=== PATIENT | male | born 1965 | race Caucasian/White ===

== ENCOUNTER 2016-09-26 09:09 | Day surgery (SDC) | payer OTHER ==
[2016-07-31 10:01] VITALS: BMI 33.5
[~2016-09-26] VITALS: Ht 186.7 cm; Wt 117.4 kg
[~2016-09-26 09:09] MED LIST: AMLO5TAB4 PO; ASPI-664 PO; ATOR20TA38 PO; CALC625T68 PO; FER325 PO; FINA5TAB PO; FLORANEX PO; HYDR10TA36 PO; LACT20SO2 PO; METF-382 PO; MYL80 PO; NICO-524 TRANSDERM; PERCOCET PO; POLY17PO6 PO; SAN30GM TOP; SENN-36 PO; SEVE800T10 PO; SITA100T8 PO; TAMS-14 PO; ZINC220C5 PO
[2016-09-26] MEDS ORDERED: IODIXANOL LOCM 100 ML BTL ONE (09:43)
[2016-09-26] MEDS ORDERED: SOD CHLORIDE 0.9% 0 ML ONE (09:43)
[2016-09-26] MEDS ORDERED: HEPARIN 1000 UNITS/ML 10 ML INJ ONE (09:43)
[2016-09-26] MEDS ORDERED: MIDAZOLAM 1 MG/ML 2 ML INJ ONE (09:43)
[2016-09-26] MEDS ORDERED: IODIXANOL LOCM 50 ML BTL ONE (09:43)
[2016-09-26] MEDS ORDERED: FENTAnyl 50 MCG/ML VIAL ONE (09:43)
[2016-09-26] MEDS ORDERED: AMLO5TAB4 PO (09:48)
[2016-09-26] MEDS ORDERED: ATOR20TA38 PO (09:50)
[2016-09-26] MEDS ORDERED: ASPI81TA3 PO (09:50)
[2016-09-26] MEDS ORDERED: FURO20TA3 PO (09:51)
[2016-09-26] MEDS ORDERED: FURO40TA4 PO (09:51)
[2016-09-26] MEDS ORDERED: LOSA100T7 PO (09:52)
[2016-09-26] MEDS ORDERED: METF500T3 PO (09:52)
[2016-09-26 10:05] LABS: ADD SCAN DIFF NO
[2016-09-26 10:06] VITALS: Ht 186.7 cm; Wt 117.4 kg
[2016-09-26 10:07] VITALS: BP 158/72; PULSE 82; RESP 18
[2016-09-26 10:11] LABS: BASOPHIL # 0.1 10^3/ul (0.0-0.1); BASOPHILS % 0.5 % (0.0-2.0); EOSINOPHILS # 0.8 10^3/ul (0.0-0.5); EOSINOPHILS % 8.2 % (0.0-7.0); HEMATOCRIT 42.3 % (42.0-52.0); LYMPHOCYTES # 2.7 10^3/ul (0.8-2.9); LYMPHOCYTES % 27.8 % (15.0-51.0); MEAN CORPUSCULAR HEMOGLOBIN 27.8 pg (29.0-33.0); MEAN CORPUSCULAR HGB CONC 33.1 g/dl (32.0-37.0); MEAN CORPUSCULAR VOLUME 84.1 fl (82.0-101.0); MEAN PLATELET VOLUME 11.3 fl (7.4-10.4); MONOCYTE # 0.9 10^3/ul (0.3-0.9); NEUTROPHIL # 5.3 10^3/ul (1.6-7.5); NEUTROPHILS % 54.1 % (39.0-77.0); PLATELET COUNT 162 10^3/UL (140-415); RED BLOOD COUNT 5.03 10^6/ul (4.70-6.10); WHITE BLOOD COUNT 9.8 10^3/ul (4.8-10.8)
[2016-09-26 10:20] LABS: CREATININE 1.27 mg/dl (0.61-1.24); POTASSIUM 4.2 mmol/L (3.5-5.1)
[2016-09-26 10:22] LABS: CALCIUM 8.7 mg/dl (8.4-10.2)
[2016-09-26 10:27] LABS: INR 0.91; PROTIME 12.2 Sec (12.2-14.2)
--- NOTE | 2016-09-26 11:24 | RADRPT ---
PROCEDURE: XR Chest. CLINICAL INDICATION: Shortness of breath. TECHNIQUE: Single frontal view. COMPARISON: 08/26/2015. FINDINGS: The left arm PICC line has been removed. The lungs are clear. The heart size is normal. There is no pleural effusion. There is no pneumothorax. IMPRESSION: 1. Left arm PICC line removed. 2. Otherwise normal chest radiograph. RPTAT: QQ .Juan Jose Giraldo MD, MD Date Time Electronically viewed and signed by .Juan Jose Giraldo MD, on 09/26/2016 11:24 .R/
--- NOTE | 2016-09-27 10:34 | RADRPT ---
Vent Rate: 73 bpm RR Interval: 0 msec SC Interval: 196 msec QRS Duration: 106 msec QT Interval: 398 msec QTC Interval: 438 msec P-R-T Kermit: 62 - 15 - 75 degrees Normal sinus rhythm Normal ECG Electronically Signed By: Robert Hassan [id number]
== END 2016-09-26 12:15 | disposition home or self-care (01) ==
LOC: SDS 09:09
PROVIDERS: ATTEND Student in an Organized Health Care Education/Training Program
DX: L97.919 Non-pressure chronic ulcer of unspecified part of right lower leg with unspecified severity (principal)
CPT/HCPCS: 71010; 80048; 82962; 85025; 85610; 85730; 93005; Q9967; J1644; J2250; J3010; J7040

== ENCOUNTER 2018-12-17 09:17 | Day surgery (SDC) | payer MEDICARE, OTHER ==
[2018-12-16 18:21] VITALS: Ht 185.4 cm; Wt 113.3 kg
[~2018-12-17] VITALS: Ht 185.4 cm; Wt 113.3 kg
[2018-12-17] VITALS (8 sets, daily range): BP systolic 129–155; BP diastolic 56–72; PULSE 78–90; RESP 13–20
[~2018-12-17 09:17] MED LIST changes: -ASPI-664 PO; +ASPI-903 PO; -CALC625T68 PO; -FER325 PO; -FINA5TAB PO; -FLORANEX PO; +FURO40TA4 PO; -HYDR10TA36 PO; -LACT20SO2 PO; +LOSA100T15 PO; -METF-382 PO; +METF500T3 PO; -MYL80 PO; -NICO-524 TRANSDERM; -PERCOCET PO; -POLY17PO6 PO; -SAN30GM TOP; -SENN-36 PO; -SEVE800T10 PO; -SITA100T8 PO; -TAMS-14 PO; -ZINC220C5 PO
[2018-12-17] MEDS ORDERED: TRAM50TA PO (10:27)
[2018-12-17] MEDS ORDERED: SITA50TA2 PO (10:27)
[2018-12-17] MEDS ORDERED: ALLO100T PO (10:27)
[2018-12-17] MEDS ORDERED: UMEC1DIS INHALATION (10:27)
[2018-12-17] MEDS ORDERED: CHOL100062 PO (10:27)
[2018-12-17] MEDS ORDERED: SPIR25TA PO (10:27)
--- NOTE | 2018-12-17 10:34 | PREAC ---
Date/Time of Note Date/Time of Note DATE: 12/17/18 TIME: 10:31 Anesthesia Eval and Record Evaluation Time Pre-Procedure Interview DATE: 12/17/18 TIME: 10:31 Age 53 Sex male NPO: 8 hrs Preoperative diagnosis left foot osteomyelitis, diabetic foot ulcer Planned procedure left foot debridement of ulcer, removal of osteomyelitic bone Past Medical History Past Medical History: Includes Cardio: HTN, Dyslipidemia Endo: Diabetes (glucose 204 in preop) Pulm: Smoking Hx (1ppd, smoked today), Asthma Musculoskeletal: Other (chronic pain-feet, neuropathy) Surgery & Anesthesia Issues No known issue Meds Anticoagulation: No Beta Binu within 24 hr: No Reason Beta Binu not given: Pt. not on B-Binu Reported Medications Cholecalciferol* (Vitamin D3*) 1,000 Unit Tablet, 5000 UNIT PO DAILY, TAB 12/17/18 Sitagliptin* (Januvia*) 50 Mg Tablet, 50 MG PO DAILY, #30 TAB 12/17/18 Umeclidinium Brm-Vilanterol Tr (Anoro Ellipta) 62.5-25 Mcg Disk.w.dev, 1 PUFF INHALATION DAILY, #1 DISK 12/17/18 Tramadol Hcl* (Ultram*) 50 Mg Tablet, 50 MG PO Q6H PRN for PAIN, TAB 12/17/18 Spironolactone* (Aldactone*) 25 Mg Tablet, 25 MG PO DAILY, #30 TAB 12/17/18 Allopurinol* (Allopurinol*) 100 Mg Tablet, 200 MG PO DAILY, TAB 12/17/18 Losartan Potassium* (Losartan Potassium*) 100 Mg Tablet, 100 MG PO DAILY, TAB 09/26/16 Atorvastatin Calcium* (Atorvastatin Calcium*) 20 Mg Tablet, 20 MG PO QHS, #30 TAB 09/26/16 Aspirin* (Aspirin* Chew) 81 Mg Tab.chew, 81 MG PO DAILY, TAB.CHEW 09/26/16 Discontinued Reported Medications Metformin Hcl* (Metformin Hcl* ER) 500 Mg Tab.sr.24h, 500 MG PO DAILY, #30 TAB 09/26/16 Furosemide* (Furosemide*) 40 Mg Tablet, 40 MG PO BID, TAB 09/26/16 Amlodipine Besylate* (Norvasc*) 5 Mg Tablet, 5 MG PO DAILY, TAB 09/26/16 Meds reviewed: Yes Allergies Coded Allergies: Penicillins (Unverified Allergy, Severe, HIVES, 12/17/18) Allergies Reviewed: Yes Labs/Studies Labs Reviewed: Reviewed by anesthesiologist test: N/A Studies: ECG, CXR Pre-procedure Exam Airway: Adequate mouth opening, Adequate thyromental dist Mallampati: Mallampati II Teeth: Normal (some missing teeth but no loose ) Lung: Normal Heart: Normal ASA Physical Status ASA physical status: 3 Emergency: None Planned Anesthetic General/MAC: MAC Planned Pain Management Parenteral pain med, Local by surgeon Pre-operative Attestations Prior to commencing anesthesia and surgery, the patient was re-evaluated, there was verification of: *The patient's identity *The results of appropriate recent lab work and preoperative vital signs *The above evaluation not changing prior to induction *Anesthetic plan, risk benefits, alternative and complications discussed with patient/family; questions answered; patient/family understands, accepts and wishes to proceed. VIV TALBOT Dec 17, 2018 10:34
[2018-12-17] MEDS ORDERED: ONDANSETRON 4 MG INJ IV PRN (11:00)
[2018-12-17] MEDS ORDERED: HYDROmorphONE 1 MG/5 ML IV SYRINGE IV PRN ×3 (11:00)
[2018-12-17] MEDS ORDERED: OXYCODONE/ACETAMINOPHEN (5/325) TAB PO PRN ×2 (11:00)
[2018-12-17] MEDS ORDERED: ALBUTEROL 0.083% (NEB) 2.5 MG/3 ML AMP HHN PRN (11:00)
[2018-12-17] MEDS ORDERED: SOD CHLORIDE 0.9% 1,000 ML IV SCH (11:00)
[2018-12-17] MEDS ORDERED: MIDAZOLAM 1 MG/ML 2 ML INJ ONE (11:16)
[2018-12-17] MEDS ORDERED: PROPOFOL 20 ML ONE (11:16)
[2018-12-17] MEDS ORDERED: FENTAnyl 50 MCG/ML VIAL ONE (11:16)
[2018-12-17] MEDS ORDERED: LIDOCAINE 2% (SDV) 5 ML INJ ONE (11:16)
[2018-12-17] MEDS ORDERED: CLINDAMYCIN 900 MG/D5W (PMX) 50 ML IVPB ONE (11:16)
[2018-12-17] MEDS ORDERED: GLYCOPYRROLATE 0.4 MG INJ ONE (11:18)
--- NOTE | 2018-12-17 11:18 | HPN ---
Date/Time of Note Date/Time of Note DATE: 12/17/18 TIME: 11:18 Interval H&P Admission Note Pt. seen H&P reviewed: No system changes AMRITA BOUCHER DPM Dec 17, 2018 11:18
[2018-12-17] MEDS ORDERED: BUPIVACAINE 0.5% (SDV) 30 ML INJ ONE (11:26)
[2018-12-17] MEDS ORDERED: ONDANSETRON 4 MG INJ ONE (12:11)
[2018-12-17] MEDS ORDERED: METOCLOPRAMIDE 10 MG INJ ONE (12:11)
[2018-12-17] MEDS ORDERED: FAMOTIDINE 20 MG INJ ONE (12:12)
--- NOTE | 2018-12-17 13:09 | SIPON ---
Date/Time of Note Date/Time of Note DATE: 12/17/18 TIME: 13:07 Operative Report Preoperative Diagnosis Left foot. osteomyekitis of the 4th met. Postoperative Diagnosis Same Operation/Procedure Performed Debridement of the ulceration. Removal of osteomyelitic bone 4th Met. Surgeon see signature line actuarial assistant None. Anesthesia: general Estimated blood loss: minimal Transfusion Required none Specimen Bone Biopsy. Grafts/Implants none Complications none AMRITA BOUCHER DPM Dec 17, 2018 13:09
--- NOTE | 2018-12-17 13:25 | PAC ---
Date/Time of Note Date/Time of Note DATE: 12/17/18 TIME: 13:25 Post-Anesthesia Notes Post-Anesthesia Note Last documented vital signs Vital Signs Date Temp Pulse Resp B/P (MAP) Pulse Ox O2 O2 Flow FiO2 Time Delivery Rate 12/17/18 97.4 13:22 12/17/18 88 17 148/69 99 Mask 8.0 13:16 (95) Activity: WNL Respiratory function: WNL Cardiovascular function: WNL Mental status: Baseline Pain reasonably controlled: Yes Hydration appropriate: Yes Nausea/Vomiting absent: Yes VIV TALBOT Dec 17, 2018 13:25
[2018-12-17] MEDS ORDERED: ONDANSETRON (ODT) 4 MG TAB ODT PRN (13:30)
[2018-12-17] MEDS ORDERED: HYDROCODONE/APAP (10/325) TAB PO PRN (13:30)
--- NOTE | 2018-12-17 13:37 | OPR ---
DATE OF OPERATION: 12/17/2018 PREOPERATIVE DIAGNOSIS: Osteomyelitis of the 4th metatarsal of the left foot. POSTOPERATIVE DIAGNOSIS: Osteomyelitis of the 4th metatarsal of the left foot. OPERATION: Left foot debridement of ulceration and removal of osteomyelitic bone of the 4th metatarsal. ANESTHESIA: General. OPERATION IN DETAILS: The patient was brought in the OR and approximately 10 mL of 0.5% plain Marcaine was administered circumferentially around the 4th metatarsophalangeal joint region of the left foot. After anesthesia was achieved, tourniquet was applied around the ankle. Foot and ankle were prepped and draped in the usual sterile fashion. The foot and ankle was then exsanguinated with an Esmarch bandage and the tourniquet was inflated to approximately 250 mmHg. Attention was then directed to the plantar aspect where a debridement was done with #10 blade down to the head of the 4th metatarsal. Then, attention was then directed back dorsally where a 4 cm incision was performed over the 4th metatarsophalangeal joint region. Sharp and blunt dissection was achieved. Any bleeding vessels were ligated and nervous tissue was retracted. There was a large amount of drainage noted that was serosanguineous. This was cultured for both aerobic and anaerobic down to the head of the 4th metatarsal. Utilizing scissors and a #15 blade, the 4th metatarsal head was circumscribed and the osteomyelitis was identified at the head of the 4th metatarsal up to the metaphyseal region. Utilizing a sagittal saw, approximately 0.5 cm proximal to the visible clinical osteomyelitic changes, the head of the 4th metatarsal was osteotomized and removed in toto. Inspection was done of the remaining stalk of the metatarsal and it clinically appeared to show no osteomyelitic changes in the bone. The area was then copiously lavaged with antibiotic solution. A bone biopsy was taken and sent to pathology. The surgical site was then coapted with 3-0 nylon and 2-0 Vicryl suture and the dorsal incision with a 3-0 nylon. Approximately 1 cm area was left open so that it is not primarily completely closed. Nu Gauze was utilized to pack the wound dorsally and to create a wicking effect postoperatively dorsally. The plantar ulcer was circumscribed and the bleeding areas were ligated and then the ulceration site plantarly was sutured closed. Postoperatively, approximately 10 mL of 0.5% plain Marcaine was then utilized. A dressing of Adaptic, 4 x 4's and roll gauze was then utilized over the foot. The tourniquet was released and normoactive hyperemia was then noted in all the digits of the left foot. This patient tolerated the procedure well and left the OR in stable condition. There were no intraoperative complications. There was minimal blood loss noted. Dictated By: AMRITA MAJOR/JOSS Conf#: [id number] DID#: [id number] MTDD
== END 2018-12-17 15:17 | disposition home or self-care (01) ==
LOC: SDS 09:17
PROVIDERS: ATTEND Podiatrist Foot & Ankle Surgery
DX: M86.672 Other chronic osteomyelitis, left ankle and foot (principal); E11.621 Type 2 diabetes mellitus with foot ulcer; E78.5 Hyperlipidemia, unspecified; I12.9 Hypertensive chronic kidney disease with stage 1 through stage 4 chronic kidney disease, or unspecified chronic kidney disease; N18.2 Chronic kidney disease, stage 2 (mild); J45.909 Unspecified asthma, uncomplicated; Z79.82 Long term (current) use of aspirin
CPT/HCPCS: 11044; 73630; 82962; 87070; 87075; 87102; 87116; 88304; 88311; J2250; J2405; J2765; J3010

== ENCOUNTER 2018-12-29 14:09 | Inpatient (IN) | payer MEDICARE, OTHER ==
[~2018-12-29] VITALS: Ht 185.4 cm; Wt 115.4 kg
[~2018-12-29 14:09] MED LIST changes: +ALLO100T PO; -AMLO5TAB4 PO; +CHOL100062 PO; -FURO40TA4 PO; -METF500T3 PO; +SITA50TA2 PO; +SPIR25TA PO; +TRAM50TA PO; +UMEC1DIS INHALATION
--- NOTE | 2018-12-29 14:41 | ERD ---
ER Documentation Chief Complaint Chief Complaint left leg redness sent by nut former HPI The patient is a 53-year-old male, presenting to the ER because of left leg redness and swollen, sent to the ER by his nut former. He had left metatarsal surgery due to osteomyelitis about 10 days ago, he is taking antibiotic but he does not know the name, denies fever, chills, neck pain, chest pain, dyspnea, abdominal pain, vomiting, dysuria, diarrhea. He smokes, denies drinking Past medical history: Diabetes mellitus, hypertension, dyslipidemia, CAD, diabetic neuropathy Past surgical history: Cholecystectomy ROS All systems reviewed and are negative except as per history of present illness. Medications Home Meds Reported Medications Albuterol Sulfate* (Proair HFA*) 8.5 Gm Hfa.aer.ad, 2 PUFF INH Q4H PRN for WHEEZING AND SOB, #1 INHALER 12/29/18 Cyanocobalamin* (Vitamin B-12*) 1,000 Mcg Tablet.sa, 500 MCG PO DAILY, TAB 12/29/18 Furosemide* (Furosemide*) 40 Mg Tablet, 40 MG PO BID, TAB 12/29/18 Cholecalciferol* (Vitamin D3*) 1,000 Unit Tablet, 5000 UNIT PO DAILY, TAB 12/17/18 Sitagliptin* (Januvia*) 50 Mg Tablet, 50 MG PO DAILY, #30 TAB 12/17/18 Umeclidinium Brm-Vilanterol Tr (Anoro Ellipta) 62.5-25 Mcg Disk.w.dev, 1 PUFF INHALATION DAILY, #1 DISK 12/17/18 Tramadol Hcl* (Ultram*) 50 Mg Tablet, 50 MG PO Q6H PRN for PAIN, TAB 12/17/18 Spironolactone* (Aldactone*) 25 Mg Tablet, 25 MG PO DAILY, #30 TAB 12/17/18 Allopurinol* (Allopurinol*) 100 Mg Tablet, 200 MG PO DAILY, TAB 12/17/18 Losartan Potassium* (Losartan Potassium*) 100 Mg Tablet, 100 MG PO DAILY, TAB 09/26/16 Atorvastatin Calcium* (Atorvastatin Calcium*) 20 Mg Tablet, 20 MG PO QHS, #30 TAB 09/26/16 Aspirin* (Aspirin* Chew) 81 Mg Tab.chew, 81 MG PO DAILY, TAB.CHEW 09/26/16 Allergies Allergies: Coded Allergies: Penicillins (Unverified Allergy, Severe, HIVES, 12/29/18) PMhx/Soc History of Surgery: Yes (CHOLECYSTECTOMY, R FOOT I AND D, ANGIOPLASTY) Anesthesia Reaction: No Hx Neurological Disorder: No Hx Respiratory Disorders: No Hx Cardiac Disorders: Yes (HTN,CAD,FUNMI. LE ATHEROSCLEROTIC DIS.) Hx Psychiatric Problems: No Hx Miscellaneous Medical Probl: Yes Hx Alcohol Use: No Hx Substance Use: No Hx Tobacco Use: Yes Physical Exam Vitals Vital Signs Date Temp Pulse Resp B/P (MAP) Pulse Ox O2 O2 Flow FiO2 Time Delivery Rate 12/29/18 98.0 77 18 121/59 96 Room Air 16:10 (79) 12/29/18 98.0 76 18 129/61 96 Room Air 14:55 (83) 12/29/18 97.9 78 18 138/67 96 14:12 (90) Physical Exam Const: No acute distress Head: Atraumatic Eyes: Normal Conjunctiva ENT: Normal External Ears, Nose and Mouth. Neck: Full range of motion. No meningismus. Resp: Clear to auscultation bilaterally Cardio: Regular rate and rhythm, no murmurs Abd: Soft, non tender, non distended. Normal bowel sounds Skin: No petechiae or rashes Back: No midline or flank tenderness Ext: Left leg is warm to touch/mild edema, mild calf tenderness. Bilateral feet are dressed Neur: Awake and alert Psych: Normal Mood and Affect Result Diagram: 12/29/18 1534 12/29/18 1534 Results 24 hrs Laboratory Tests Test 12/29/18 15:23 12/29/18 15:34 POC Venous Lactate 1.1 mmol/L White Blood Count 9.9 10^3/ul Red Blood Count 5.61 10^6/ul Hemoglobin 15.1 g/dl Hematocrit 48.4 % Mean Corpuscular Volume 86.3 fl Mean Corpuscular Hemoglobin 26.9 pg Mean Corpuscular Hemoglobin Concent 31.2 g/dl Red Cell Distribution Width 16.9 % Platelet Count 180 10^3/UL Mean Platelet Volume 11.6 fl Immature Granulocytes % 1.100 % Neutrophils % 59.2 % Lymphocytes % 23.0 % Monocytes % 9.0 % Eosinophils % 6.9 % Basophils % 0.8 % Nucleated Red Blood Cells % 0.0 /100WBC Immature Granulocytes # 0.110 10^3/ul Neutrophils # 5.8 10^3/ul Lymphocytes # 2.3 10^3/ul Monocytes # 0.9 10^3/ul Eosinophils # 0.7 10^3/ul Basophils # 0.1 10^3/ul Nucleated Red Blood Cells # 0.0 10^3/ul Erythrocyte Sedimentation Rate 45 mm/Hr Prothrombin Time 11.9 Sec Prothrombin Time Ratio 0.9 INR International Normalized Ratio 0.87 Activated Partial Thromboplast Time 26.7 Sec Urine Color STRAW Urine Clarity CLEAR Urine pH 6.0 Urine Specific [place] 1.008 Urine Ketones NEGATIVE mg/dL Urine Nitrite NEGATIVE mg/dL Urine Bilirubin NEGATIVE mg/dL Urine Urobilinogen NEGATIVE mg/dL Urine Leukocyte Esterase NEGATIVE Abelino/ul Urine Hemoglobin NEGATIVE mg/dL Urine Glucose 3+ mg/dL Urine Total Protein NEGATIVE mg/dl Sodium Level 140 mmol/L Potassium Level 4.5 mmol/L Chloride Level 105 mmol/L Carbon Dioxide Level 29 mmol/L Anion Gap 6 Blood Urea Nitrogen 23 mg/dl Creatinine 1.92 mg/dl Est Glomerular Filtrat Rate mL/min 37 mL/min Glucose Level 202 mg/dl Calcium Level 10.0 mg/dl Total Bilirubin 0.5 mg/dl Direct Bilirubin 0.00 mg/dl Indirect Bilirubin 0.5 mg/dl Aspartate Amino Transf (AST/SGOT) 19 IU/L Alanine Aminotransferase (ALT/SGPT) 22 IU/L Alkaline Phosphatase 70 IU/L Troponin I < 0.012 ng/ml Total Protein 7.9 g/dl Albumin 4.0 g/dl Globulin 3.90 g/dl Albumin/Globulin Ratio 1.02 Current Medications Medications Dose Sig/Babak Start Time Status Last (Trade) Ordered Route PRN Stop Time Admin Dose Reason Admin Vancomycin 250 ml @ ONCE ONCE 12/29/18 HCl 125 mls/hr IVPB 16:30 12/29/18 18:29 50 ml @ ONCE STAT 12/29/18 DC 12/29/18 Meropenem/Sod 100 mls/hr IVPB 16:25 17:24 ium Chloride 12/29/18 16:54 Procedures/MDM [address] [address] Radiology Main Line: [phone] DIAGNOSTIC IMAGING REPORT Patient: DENNY AUGUSTE : 1965 Age: 53 Sex: M MR #: [id number] DOS: 12/29/18 1627 Ordering MD: MARY COON MD Location: E/R Room/Bed: PROCEDURE: US Lower extremity Venous. CLINICAL INDICATION: Left leg pain TECHNIQUE: Multiple sonographic images of the left lower extremity deep venous system was obtained utilizing grayscale, color-flow, compressive sonography and doppler imaging with augmentation. The images were reviewed on a PACS workstation. COMPARISON: None. FINDINGS: There is normal compressibility and flow within the left common femoral, deep femoral, superficial femoral, posterior tibial, peroneal and popliteal veins. IMPRESSION: No sonographic evidence for deep venous thrombosis. RPTAT: AA .Hiral Rosen MD, MD Date Time Electronically viewed and signed by .Hiral Rosen MD, MD on 12/29/2018 17:18 .J/ CC: MARY COON MD [id number] [place] [id number] Radiology Main Line: [phone] DIAGNOSTIC IMAGING REPORT Patient: DENNY AUGUSTE : 1965 Age: 53 Sex: M MR #: [id number] DOS: 12/29/18 1505 Ordering MD: MARY COON MD Location: E/R Room/Bed: PROCEDURE: XR Chest. CLINICAL INDICATION: Possible Sepsis TECHNIQUE: Portable AP view of the chest was obtained. COMPARISON: CR CHEST 09/26/2016; CR CHEST 08/26/2015; CR CHEST 08/19/2015 FINDINGS: Mild patchy opacities in the lung bases. No focal appearing consolidation, effusion, or pneumothorax. Normal heart size. Normal bones. IMPRESSION: Minimal patchy opacities lung bases, favor partial atelectasis. RPTAT: HRGF Nayeli Ribeiro, Physician Date Time Electronically viewed and signed by Nayeli Ribeiro Physician on 12/29/2018 16:31 RF/ CC: MARY COON MD [id number] [place] [id number] Radiology Main Line: [phone] DIAGNOSTIC IMAGING REPORT Patient: DENNY AUGUSTE : 1965 Age: 53 Sex: M MR #: [id number] DOS: 12/29/18 1505 Ordering MD: MARY COON MD Location: E/R Room/Bed: PROCEDURE: XR Left Foot. CLINICAL INDICATION: pain TECHNIQUE: AP, lateral and oblique views of the left foot was obtained. The images were reviewed on a PACS workstation. COMPARISON: FOOT 12/17/2018; [place] FOOT 07/05/2016 FINDINGS: Redemonstration of postsurgical changes from amputation of the distal fourth metatarsal. Redemonstration of chronic erosive changes of the distal fifth meta tarsal. No acute appearing fracture or definite new erosive changes. Forefoot soft tissue swelling. Stable degenerative changes. IMPRESSION: Overall, no significant change compared to prior exam. Forefoot soft tissue swelling which may represent cellulitis. Consider MRI if there is concern for acute osteomyelitis. RPTAT: HRGF Nayeli Ribeiro, Physician Date Time Electronically viewed and signed by Nayeli Ribeiro Physician on 12/29/2018 16:30 RF/ CC: MARY COON MD [id number] EKG: Read by emergency physician Rate/Rhythm: Normal Sinus Rhythm 75 beats/min QRS, ST, T-waves: No ST elevation, no T inversion, artifacts Impression: Normal EKG MEDICAL MAKING DECISION: The patient is a 53-year-old male, presenting with recent left foot ulcer mellitus, acute left leg cellulitis. He was treated with vancomycin IV, meropenem IV. The differential diagnoses considered include but are not limited to cellulitis, abscess, osteomyelitis, gangrene Departure Diagnosis: Primary Impression: Osteomyelitis of left foot Additional Impressions: Left leg cellulitis JUSTEN (acute kidney injury) Condition: Stable Comments I discussed the findings with the patient. I discussed the patient with Dr Sally bean at 4:30 PM, who was made aware of the lab, the treatment, the patient condition. The patient is admitted to [facility] Disclaimer: Inadvertent spelling and grammatical errors are likely due to EHR/dictation software use and do not reflect on the overall quality of patient care. Also, please note that the electronic time recorded on this note does not necessarily reflect the actual time of the patient encounter. MARY COON MD Dec 29, 2018 14:41
[2018-12-29] MEDS ORDERED: FURO40TA4 PO (15:08)
[2018-12-29] MEDS ORDERED: CYAN100080 PO (15:09)
[2018-12-29] MEDS ORDERED: ALBU8.5H8 INH (15:09)
[2018-12-29] MEDS ORDERED: MEROPENEM 500MG/50 ML (PMX) 50 ML IVPB STA (16:25)
[2018-12-29] MEDS ORDERED: VANCOMYCIN 1 GM (PMX) 250 ML IVPB ONE (16:30)
[2018-12-29] MEDS ORDERED: VANCOMYCIN IV PER PHARMACY XX SCH (19:00)
--- NOTE | 2018-12-29 19:09 | HP ---
Date/Time of Note Date/Time of Note DATE: 12/29/18 TIME: 19:00 Assessment/Plan VTE Prophylaxis SCD applied (from Nsg): Yes Pharmacological prophylaxis: heparin Lines/Catheters IV Catheter Type (from Nrsg): Saline Lock Assessment/Plan Hospital Course Alert, oriented Comfortable appearing RRR CTAB Soft nt nd LLE is erythematous and warm through the calf, mild pain to touch. Pitting edema present A/P: 53 yo male with PAD, DMII, venous insufficiency, DMII who presents with cellulitis of the lower extremity which developed while taking PO abx as outpatinet Cellulitis: - Vanco/cefepime - Monitor clinically - Will defer further imaging, no signs of abscess etc Venous insufficency: - Continue diuretic regimen for edema DMII: - Basal/bolus insulin COPD: - Contiune breo Hypertension: - Continue losartan Dc with follow up with Dr Rueda when improved Result Diagram: 12/29/18 1534 12/29/18 1534 Results 24hrs Laboratory Tests Test 12/29/18 15:23 12/29/18 15:34 POC Venous Lactate 1.1 White Blood Count 9.9 Red Blood Count 5.61 Hemoglobin 15.1 Hematocrit 48.4 Mean Corpuscular Volume 86.3 Mean Corpuscular Hemoglobin 26.9 L Mean Corpuscular Hemoglobin Concent 31.2 L Red Cell Distribution Width 16.9 H Platelet Count 180 Mean Platelet Volume 11.6 H Immature Granulocytes % 1.100 H Neutrophils % 59.2 Lymphocytes % 23.0 Monocytes % 9.0 Eosinophils % 6.9 Basophils % 0.8 Nucleated Red Blood Cells % 0.0 Immature Granulocytes # 0.110 H Neutrophils # 5.8 Lymphocytes # 2.3 Monocytes # 0.9 Eosinophils # 0.7 H Basophils # 0.1 Nucleated Red Blood Cells # 0.0 Erythrocyte Sedimentation Rate 45 H Prothrombin Time 11.9 Prothrombin Time Ratio 0.9 INR International Normalized Ratio 0.87 Activated Partial Thromboplast Time 26.7 Urine Color STRAW Urine Clarity CLEAR Urine pH 6.0 Urine Specific [place] 1.008 Urine Ketones NEGATIVE Urine Nitrite NEGATIVE Urine Bilirubin NEGATIVE Urine Urobilinogen NEGATIVE Urine Leukocyte Esterase NEGATIVE Urine Hemoglobin NEGATIVE Urine Glucose 3+ H Urine Total Protein NEGATIVE Sodium Level 140 Potassium Level 4.5 Chloride Level 105 Carbon Dioxide Level 29 Anion Gap 6 Blood Urea Nitrogen 23 H Creatinine 1.92 H Est Glomerular Filtrat Rate mL/min 37 L Glucose Level 202 Calcium Level 10.0 Total Bilirubin 0.5 Direct Bilirubin 0.00 Indirect Bilirubin 0.5 Aspartate Amino Transf (AST/SGOT) 19 Alanine Aminotransferase (ALT/SGPT) 22 Alkaline Phosphatase 70 Troponin I < 0.012 Total Protein 7.9 Albumin 4.0 Globulin 3.90 H Albumin/Globulin Ratio 1.02 HPI/ROS Admit Date/Time Admit Date/Time Hx of Present Illness 53 yo male with h/o DMII with PAD and recent OM of metatarsal status post surgery two weeks ago sent home on PO abx (unclear which) He was seen in Dr Rueda's office today for follow up visit. His RLE is very warm and erythematous through the calf suggestive of cellulitis. He was thus sent to ED for IV abx. He has pain in the skin there but no systemic symptoms Duplex was negative for DVT ROS Constitutional: no complaints, improved Eyes: no complaints ENT: no complaints Respiratory: no complaints Cardiovascular: no complaints Gastrointestinal: no complaints Genitourinary: no complaints Musculoskeletal: no complaints Skin: no complaints Neurologic: no complaints Endocrine: no complaints Lymphatic: no complaints Psychological: no complaints, nl mood/affect Immunologic: no complaints PMH/Family/Social Past Medical History Medical History: diabetes Coded Allergies: Penicillins (Unverified Allergy, Severe, HIVES, 12/29/18) Past Surgical History Past Surgical Hx: cholecystectomy, other Family History Significant Family History: heart disease, diabetes, vascular disease Social History Smoking Status: Current every day smoker Exam/Review of Systems Vital Signs Vitals Vital Signs Date Temp Pulse Resp B/P (MAP) Pulse Ox O2 O2 Flow FiO2 Time Delivery Rate 12/29/18 98.0 77 18 121/59 96 Room Air 16:10 (79) RADHA BRYSON MD Dec 29, 2018 19:09
--- NOTE | 2018-12-29 19:22 | QN ---
Documentation Comment Pt. sent to ED because of celluliitis of the LLE. !0 days ago removal of o steomyelitic 4th metatarsal. Pt. denied fever, chills or nausea. Neg. for Sherman's sign. Resolving surgical incision with no drainage. AMRITA BOUCHER. RADHA Dec 29, 2018 19:22
[2018-12-29] MEDS ORDERED: traMADol 50 MG TAB PO PRN (19:30)
[2018-12-29] MEDS ORDERED: ALBUTEROL HFA 8 GM INHALER INH PRN (19:30)
[2018-12-29 20:25] VITALS: Ht 185.4 cm; Wt 115.4 kg
[2018-12-29 20:36] VITALS: BP 120/56; PULSE 80; RESP 18
[2018-12-29] MEDS ORDERED: ATORVASTATIN 20 MG TAB PO SCH (21:00)
[2018-12-29] MEDS ORDERED: FUROSEMIDE 40 MG TAB PO SCH (21:00)
[2018-12-29] MEDS ORDERED: VANCOMYCIN 1 GM 250 ML IVPB ONE (21:30)
[2018-12-29] MEDS: CEFEPIME 1GM/50 ML (PMX) 50 ML IVPB SCH (21:45)
[2018-12-29] MEDS ORDERED: DEXTROSE 50% 50 ML SYRINGE IV PRN ×2 (22:30)
[2018-12-29] MEDS ORDERED: NACL 0.9% 3 ML SYG IV SCH (22:30)
[2018-12-29] MEDS ORDERED: DOCUSATE SODIUM 100 MG CAP PO PRN (22:30)
[2018-12-29] MEDS ORDERED: ONDANSETRON 4 MG INJ IV PRN (22:30)
[2018-12-29] MEDS ORDERED: GLUCOSE GEL 15 GRAM TUBE PO PRN ×2 (22:30)
[2018-12-29] MEDS ORDERED: GLUCAGON 1 MG INJ IM PRN (22:30)
[2018-12-29] MEDS ORDERED: BISACODYL (EC) 5 MG TAB PO PRN (22:30)
[2018-12-29] MEDS ORDERED: morphine 2 MG INJ IV PRN (22:30)
[2018-12-29] MEDS ORDERED: GLUCOSE GEL 15 GRAM TUBE BUCCAL PRN (22:30)
[2018-12-29] MEDS ORDERED: ACETAMINOPHEN 325 MG TAB PO PRN (22:30)
[2018-12-29] MEDS ORDERED: HYDROCODONE/APAP (5/325) TAB PO PRN (22:30)
[2018-12-29] MEDS: INSULIN ASPART [NOVOLOG] 3 ML PEN SC SCH (23:09)
[2018-12-30] MEDS ORDERED: ACCU-CHEK XX SCH (02:00)
[2018-12-30 02:39] VITALS: BP 143/67; PULSE 77; RESP 16
[2018-12-30] MEDS: INSULIN ASPART [NOVOLOG] 3 ML PEN SC SCH ×2 (08:00→12:11)
[2018-12-30 08:34] VITALS: BP 130/60; PULSE 70; RESP 20
[2018-12-30] MEDS ORDERED: LOSARTAN 50 MG TAB PO SCH (09:00)
[2018-12-30] MEDS ORDERED: SPIRONOLACTONE 25 MG TAB PO SCH (09:00)
[2018-12-30] MEDS ORDERED: NON-FORMULARY/PATIENT OWN MED (Umeclidinium Brm-Vilanterol Tr (Anoro Ellipta) 1 PUFF) INHALATION SCH (09:00)
[2018-12-30] MEDS ORDERED: ALLOPURINOL 100 MG TAB PO SCH (09:00)
[2018-12-30] MEDS ORDERED: ASPIRIN 81 MG TAB PO SCH (09:00)
[2018-12-30] MEDS: CEFEPIME 1GM/50 ML (PMX) 50 ML IVPB SCH (09:06)
[2018-12-30] MEDS ORDERED: CLOT30CR35 TOP (11:41)
[2018-12-30] MEDS ORDERED: SULF1TAB31 PO (11:41)
--- NOTE | 2018-12-30 11:42 | PDOCDIS ---
Discharge Instructions DIAGNOSIS Discharge Diagnosis Cellulitis JUSTEN CONDITION [id number] Patient Condition: [id number] Stable FOLLOW UP/APPOINTMENTS Follow-up Plan Complete your antibiotics as prescribed Keep your leg elevated when possible Stop taking losartan for the time being as your blood pressure is low and your kidney function was temporarily affected. Discuss this with your primary doctor Make an appointment to see Dr Quiroz in the next 1-2 weeks RADHA BRYSON MD Dec 30, 2018 11:42
--- NOTE | 2018-12-30 13:53 | DS ---
Date/Time of Note Date/Time of Note DATE: 12/30/18 TIME: 13:52 Discharge Summary Admission/Discharge Info Admit Date/Time Dec 29, 2018 at 16:37 Discharge Date/Time Discharge Diagnosis Cellulitis JUSTEN Patient Condition: Stable Hx of Present Illness 53 yo male with h/o DMII with PAD and recent OM of metatarsal status post surgery two weeks ago sent home on PO abx (unclear which) He was seen in Dr Rueda's office today for follow up visit. His RLE is very warm and erythematous through the calf suggestive of cellulitis. He was thus sent to ED for IV abx. He has pain in the skin there but no systemic symptoms Duplex was negative for DVT Hospital Course 53 yo male with PAD, DMII, venous insufficiency, DMII who presents with cellulitis of the lower extremity which developed while taking PO abx as outpatinet He was treated with vancomycin and cefepime as an inpatient with prompt improvement. He requested discharged the following day. He was prescribed c lindamycin as well as clotrimazole for dermatophytosis of feet. He will follow up with Dr Rueda Duplex US was negative for DVT JUSTEN resolved with holding of losartan, which was held at time of discharge until he sees his PMD. Home Meds Active Scripts Clotrimazole* (Lotrimin*) 1%-30 Gm Cream..g., 1 APPLIC TOP BID for 7 Days, #1 TUB Prov:RADHA BRYSON MD 12/30/18 Sulfamethoxazole/Trimethoprim* (Bactrim Ds* Tablet) 1 Each Tablet, 1 TAB PO BID for 7 Days, #14 TAB Prov:RADHA BRYSON MD 12/30/18 Reported Medications Albuterol Sulfate* (Proair HFA*) 8.5 Gm Hfa.aer.ad, 2 PUFF INH Q4H PRN for WHEEZING AND SOB, #1 INHALER 12/29/18 Cyanocobalamin* (Vitamin B-12*) 1,000 Mcg Tablet.sa, 500 MCG PO DAILY, TAB 12/29/18 Furosemide* (Furosemide*) 40 Mg Tablet, 40 MG PO BID, TAB 12/29/18 Cholecalciferol* (Vitamin D3*) 1,000 Unit Tablet, 5000 UNIT PO DAILY, TAB 12/17/18 Sitagliptin* (Januvia*) 50 Mg Tablet, 50 MG PO DAILY, #30 TAB 12/17/18 Umeclidinium Brm-Vilanterol Tr (Anoro Ellipta) 62.5-25 Mcg Disk.w.dev, 1 PUFF INHALATION DAILY, #1 DISK 12/17/18 Tramadol Hcl* (Ultram*) 50 Mg Tablet, 50 MG PO Q6H PRN for PAIN, TAB 12/17/18 Spironolactone* (Aldactone*) 25 Mg Tablet, 25 MG PO DAILY, #30 TAB 12/17/18 Allopurinol* (Allopurinol*) 100 Mg Tablet, 200 MG PO DAILY, TAB 12/17/18 Atorvastatin Calcium* (Atorvastatin Calcium*) 20 Mg Tablet, 20 MG PO QHS, #30 TAB 09/26/16 Aspirin* (Aspirin* Chew) 81 Mg Tab.chew, 81 MG PO DAILY, TAB.CHEW 09/26/16 Discontinued Reported Medications Losartan Potassium* (Losartan Potassium*) 100 Mg Tablet, 100 MG PO DAILY, TAB 09/26/16 Follow-up Plan Complete your antibiotics as prescribed Keep your leg elevated when possible Stop taking losartan for the time being as your blood pressure is low and your kidney function was temporarily affected. Discuss this with your primary doctor Make an appointment to see Dr Quiroz in the next 1-2 weeks Primary Care Provider Care Physician No Primary Pending Labs Laboratory Tests Test 12/29/18 15:23 12/29/18 15:34 12/29/18 22:50 12/30/18 02:07 POC Venous 1.1 Lactate mmol/L (0.5-2.0 ) White Blood 9.9 Count 10^3/ul (4.8-1 0.8) Red Blood 5.61 Count 10^6/ul (4.70- 6.10) Hemoglobin 15.1 g/dl (14.0-18. 0) Hematocrit 48.4 % (42.0-52.0) Mean 86.3 Corpuscular fl (82.0-101.0 Volume ) Mean 26.9 Corpuscular pg (29.0-33.0) Hemoglobin Mean 31.2 Corpuscular g/dl (32.0-37. Hemoglobin Conc 0) ent Red Cell 16.9 Distribution % (11.5-14.5) Width Platelet Count 180 10^3/UL (140-4 15) Mean Platelet 11.6 Volume fl (7.4-10.4) Immature 1.100 Granulocytes % % (0.001-0.429 ) Neutrophils % 59.2 % (39.0-77.0) Lymphocytes % 23.0 % (15.0-51.0) Monocytes % 9.0 % (0.0-11.0) Eosinophils % 6.9 % (0.0-7.0) Basophils % 0.8 % (0.0-2.0) Nucleated Red 0.0 Blood Cells % /100WBC (0.0-0 .0) Immature 0.110 Granulocytes # 10^3/ul (0.0-0 .031) Neutrophils # 5.8 10^3/ul (1.6-7 .5) Lymphocytes # 2.3 10^3/ul (0.8-2 .9) Monocytes # 0.9 10^3/ul (0.3-0 .9) Eosinophils # 0.7 10^3/ul (0.0-0 .5) Basophils # 0.1 10^3/ul (0.0-0 .1) Nucleated Red 0.0 Blood Cells # 10^3/ul (0.0-0 .0) Erythrocyte 45 Sedimentation mm/Hr (0-20) Rate Prothrombin 11.9 Time Sec (11.9-14.9 ) Prothrombin 0.9 Time Ratio INR 0.87 International Normalized Rati o Activated 26.7 Partial Thrombo Sec (23.0-35.0 plast Time ) Urine Color STRAW (YELLOW) Urine Clarity CLEAR (CLEAR) Urine pH 6.0 (5.0-9.0) Urine Specific 1.008 (1.003-1 Dulce .030) Urine Ketones NEGATIVE mg/dL (NEGATIV E) Urine Nitrite NEGATIVE mg/dL (NEGATIV E) Urine NEGATIVE Bilirubin mg/dL (NEGATIV E) Urine NEGATIVE Urobilinogen mg/dL (NEGATIV E) Urine Leukocyte NEGATIVE Abelino/u Esterase l Urine NEGATIVE Hemoglobin mg/dL (NEGATIV E) Urine Glucose 3+ mg/dL (NEGATIV E) Urine Total NEGATIVE Protein mg/dl (NEGATIV E) Sodium Level 140 mmol/L (135-14 4) Potassium 4.5 Level mmol/L (3.5-5. 1) Chloride Level 105 mmol/L (97-110 ) Carbon Dioxide 29 Level mmol/L (21-31) Anion Gap 6 (5-13) Blood Urea 23 Nitrogen mg/dl (7-20) Creatinine 1.92 mg/dl (0.61-1. 24) Est Glomerular 37 Filtrat mL/min (>60) Rate mL/min Glucose Level 202 mg/dl (70-220) Calcium Level 10.0 mg/dl (8.4-10. 2) Total 0.5 Bilirubin mg/dl (0.2-1.3 ) Direct 0.00 Bilirubin mg/dl (0.00-0. 20) Indirect 0.5 Bilirubin mg/dl (0-1.1) Aspartate Amino 19 Transf (AST/SGO IU/L (15-46) T) Alanine 22 Aminotransferas IU/L (13-69) e (ALT/SGPT) Alkaline 70 Phosphatase IU/L (42-121) Troponin I < 0.012 ng/ml (0.000-0 .120) Total Protein 7.9 g/dl (6.1-8.1) Albumin 4.0 g/dl (3.3-4.9) Globulin 3.90 g/dl (1.3-3.2) Albumin/Globuli 1.02 n Ratio Bedside 202 159 Glucose mg/dL (70-220) mg/dL (70-220) Test 12/30/18 05:23 12/30/18 08:00 12/30/18 11:46 White Blood 10.0 Count 10^3/ul (4.8-10 .8) Red Blood 5.14 Count 10^6/ul (4.70-6 .10) Hemoglobin 14.0 g/dl (14.0-18.0 ) Hematocrit 44.4 % (42.0-52.0) Mean 86.4 Corpuscular fl (82.0-101.0) Volume Mean 27.2 Corpuscular pg (29.0-33.0) Hemoglobin Mean 31.5 Corpuscular g/dl (32.0-37.0 Hemoglobin Conc ) ent Red Cell 16.1 Distribution % (11.5-14.5) Width Platelet Count 170 10^3/UL (140-41 5) Mean Platelet 11.3 Volume fl (7.4-10.4) Immature 0.500 Granulocytes % % (0.001-0.429) Neutrophils % 59.8 % (39.0-77.0) Lymphocytes % 24.1 % (15.0-51.0) Monocytes % 8.8 % (0.0-11.0) Eosinophils % 6.2 % (0.0-7.0) Basophils % 0.6 % (0.0-2.0) Nucleated Red 0.0 Blood Cells % /100WBC (0.0-0. 0) Immature 0.050 Granulocytes # 10^3/ul (0.0-0. 031) Neutrophils # 6.0 10^3/ul (1.6-7. 5) Lymphocytes # 2.4 10^3/ul (0.8-2. 9) Monocytes # 0.9 10^3/ul (0.3-0. 9) Eosinophils # 0.6 10^3/ul (0.0-0. 5) Basophils # 0.1 10^3/ul (0.0-0. 1) Nucleated Red 0.0 Blood Cells # 10^3/ul (0.0-0. 0) Sodium Level 142 mmol/L (135-144 ) Potassium 4.8 Level mmol/L (3.5-5.1 ) Chloride Level 110 mmol/L (97-110) Carbon Dioxide 24 Level mmol/L (21-31) Anion Gap 8 (5-13) Blood Urea 20 mg/dl (7-20) Nitrogen Creatinine 1.51 mg/dl (0.61-1.2 4) Est Glomerular 48 mL/min (>60) Filtrat Rate mL/min Glucose Level 134 mg/dl (70-220) Hemoglobin A1c 8.3 % (0-5.9) Calcium Level 9.7 mg/dl (8.4-10.2 ) Total 0.8 Bilirubin mg/dl (0.2-1.3) Direct 0.00 Bilirubin mg/dl (0.00-0.2 0) Indirect 0.8 Bilirubin mg/dl (0-1.1) Aspartate Amino 24 IU/L (15-46) Transf (AST/SGO T) Alanine 18 IU/L (13-69) Aminotransferas e (ALT/SGPT) Alkaline 57 Phosphatase IU/L (42-121) Total Protein 6.5 g/dl (6.1-8.1) Albumin 3.4 g/dl (3.3-4.9) Globulin 3.10 g/dl (1.3-3.2) Albumin/Globuli 1.09 n Ratio Triglycerides 403 Level mg/dl (0-149) Cholesterol 115 Level mg/dl (100-200) LDL 17 mg/dl Cholesterol, Calculated HDL 17 Cholesterol mg/dl (28-71) Cholesterol/HDL 6.7 RATIO Ratio Thyroid 1.490 Stimulating MIU/L (0.465-4. Hormone (TSH) 680) Bedside 135 206 Glucose mg/dL (70-220) mg/dL (70-220) Microbiology Date/Time Source Procedure Growth Status 12/29/18 15:34 Catheter Urine Urine Culture - Preliminary NO GROWTH Resulted AFTER 24 HOURS RADHA BRYSON MD Dec 30, 2018 13:53
[2018-12-30 14:46] VITALS: BP 128/64; PULSE 72; RESP 20
[2018-12-30] MEDS ORDERED: VANCOMYCIN HCL 1.5 GM in SOD CHLORIDE 0.9% 250 ML IVPB SCH (18:00)
== END 2018-12-30 15:13 | disposition home or self-care (01) | DRG 638 ==
LOC: E/R 14:09 → PP2 16:37 → SUATTDRO 18:30
PROVIDERS: ADMIT Internal Medicine; ATTEND Internal Medicine
DX: E11.69 Type 2 diabetes mellitus with other specified complication (principal); L03.116 Cellulitis of left lower limb; M86.8X6 Other osteomyelitis, lower leg; M86.9 Osteomyelitis, unspecified; N17.9 Acute kidney failure, unspecified; E11.40 Type 2 diabetes mellitus with diabetic neuropathy, unspecified; I10 Essential (primary) hypertension; I25.10 Atherosclerotic heart disease of native coronary artery without angina pectoris; I87.2 Venous insufficiency (chronic) (peripheral); J44.9 Chronic obstructive pulmonary disease, unspecified; Z79.4 Long term (current) use of insulin
CPT/HCPCS: 36415; 71045; 80053; 80061; 81003; 82962; 83036; 83605; 84443; 84484; 85025; 85610; 85651; 85730; 87086; 93005; 93971; J0692; J1815; J2185; J3370; J7050